=== PATIENT | female | born 1990 | race Caucasian/White ===

== ENCOUNTER 2021-12-30 00:14 | Inpatient (IN) ==
[2021-12-30] MEDS ORDERED: LACTATED RINGERS 1,000 ML IV ONE ×2 (02:40→04:05)
[2021-12-30 02:42] LABS: Bacteria,Urine Occasional /HPF (Few); Bilirubin,Urine Negative (Negative); Blood, Urine Negative (Negative); Glucose,Urine (UA) Negative (Negative); Ketones,Urine 80 mg/dL (Negative); Mucus,Urine Occasional /LPF (Occasional); Nitrite,Urine Negative (Negative); Protein,Urine 30 MG/DL; Squamous Epithelial Cell,Urine Occasional /HPF (0-10); Urine Appearance CLOUDY (Clear); Urine Color Amber (Yellow); Urine Specific Gravity 1.015 (1.001-1.035); Urine Urobilinogen < 2.0 EU/DL (<2.0)
[2021-12-30] MEDS ORDERED: CITRIC ACID/SODIUM CITRATE 30 ML UDCUP PO ONE (03:25)
[2021-12-30] MEDS ORDERED: FAMOTIDINE 20 MG/2 ML VIAL IV ONE (03:25)
[2021-12-30] MEDS ORDERED: LACTATED RINGERS 1,000 ML IV SCH (03:30)
[2021-12-30] MEDS ORDERED: miSOPROStoL 200 MCG TABLET ONE (03:43)
[2021-12-30] MEDS ORDERED: OXYTOCIN/LR 20 UNIT/1,000 ML BAG IV ONE ×2 (03:43→10:23)
[2021-12-30] MEDS ORDERED: SODIUM CHLORIDE 0.9% 0 ML IV ONE (03:43)
[2021-12-30] MEDS ORDERED: TRANEXAMIC ACID 1,000 MG/10 ML VIAL ONE (03:43)
[2021-12-30] MEDS ORDERED: CARBOPROST TROMETHAMINE 250 MCG/ML AMP IM ONE (03:44)
[2021-12-30] MEDS ORDERED: METHYLERGONOVINE 0.2 MG/1 ML AMP ONE (03:44)
[2021-12-30 03:51] LABS: Basophils % 0.2 % (0.0-0.8); Eosinophils % 0.1 % (0.00-10.9); Hematocrit 30.3 VOL% (35.7-47.0); Hemoglobin 10.4 GM/DL (12.0-16.0); Immature Granulocytes % 0.6 %; Immature Granulocytes Absolute 0.08 #; Lymphocytes # 0.7 10*3/uL (1.4-4.0); Lymphocytes % 5.1 % (21.3-54.2); Mean Corpuscular HGB Conc 34.3 GM/DL (32-36); Mean Corpuscular Volume 87.8 FL (87-102); Monocytes % 4.6 % (1.7-12.7); Neutrophils % 89.4 % (38.7-73.9); Platelet Count 186 T/CUMM (130-400); Red Blood Count 3.45 MC/CUMM (3.8-5.5); Red Cell Distribution Width 14.4 % (9.3-17.3); White Blood Count 13.6 T/CUMM (4-12)
[2021-12-30] MEDS ORDERED: BUPIVACAINE SPINAL 0.75% 2 ML AMP SPINAL ONE (03:56)
[2021-12-30] MEDS ORDERED: ceFAZolin 3,000 MG in SYRINGE 1 EACH IV ONE (04:00)
[2021-12-30] MEDS ORDERED: OXYTOCIN/LR 20 UNIT/1,000 ML BAG IV SCH (04:00)
[2021-12-30] MEDS ORDERED: ONDANSETRON 4 MG/2 ML VIAL ONE (04:01)
[2021-12-30] MEDS ORDERED: PHENYLEPHRINE 1 MG/10 ML SYRINGE IV ONE (04:25)
[2021-12-30] MEDS ORDERED: ACETAMINOPHEN INJ 1,000 MG/100 ML VIAL IV ONE (04:57)
[2021-12-30] MEDS ORDERED: KETOROLAC 30 MG/1 ML VIAL ONE (05:03)
[2021-12-30 06:03] LABS: Cord Venous Blood HCO3 19.2 MMOL/L; Cord Venous Blood PCO2 39.9 MMHG; Cord Venous Blood PO2 25.6 MMHG
[2021-12-30 06:40] LABS: Bilirubin,Urine Negative (Negative); Blood, Urine Negative (Negative); Glucose,Urine (UA) Negative (Negative); Hyaline Casts,Urine 1 /LPF (0-3); Ketones,Urine 80 mg/dL (Negative); Mucus,Urine Few /LPF (Occasional); Nitrite,Urine Negative (Negative); Protein,Urine 30 MG/DL; RBC,Urine 2 /HPF (0-4); Squamous Epithelial Cell,Urine Occasional /HPF (0-10); Urine Appearance CLOUDY (Clear); Urine Color Amber (Yellow); Urine Specific Gravity 1.017 (1.001-1.035); Urine Urobilinogen < 2.0 EU/DL (<2.0)
[2021-12-30 07:51] LABS: Hematocrit 27.4 VOL% (35.7-47.0); Hemoglobin 9.3 GM/DL (12.0-16.0)
[2021-12-30] MEDS ORDERED: MAGNESIUM HYDROXIDE SUSP 30 ML UDCUP PO PRN (10:23)
[2021-12-30] MEDS ORDERED: RHO(D) IMMUNE GLOBULIN 300 MCG SYRINGE IM ONE (10:23)
[2021-12-30] MEDS ORDERED: ONDANSETRON 4 MG/2 ML VIAL IV PRN (10:23)
[2021-12-30] MEDS: ACETAMINOPHEN 500 MG TABLET PO SCH ×3 (11:45→22:43)
[2021-12-30] MEDS: KETOROLAC 30 MG/1 ML VIAL IV SCH ×3 (11:45→22:43)
[2021-12-30 11:53] LABS: Hematocrit 24.4 VOL% (35.7-47.0); Hemoglobin 8.3 GM/DL (12.0-16.0)
[2021-12-30] MEDS: SIMETHICONE CHEW 80 MG TABLET PO PRN ×2 (12:19→21:06)
[2021-12-30] MEDS: DOCUSATE SODIUM 100 MG CAPSULE PO SCH (21:06)
[2021-12-31] MEDS: IBUPROFEN 800 MG TABLET PO PRN ×3 (05:14→22:03)
[2021-12-31 06:42] LABS: Basophils % 0.4 % (0.0-0.8); Eosinophils # 0.1 10*3/uL (0.0-0.87); Eosinophils % 1.2 % (0.00-10.9); Hematocrit 22.4 VOL% (35.7-47.0); Hemoglobin 7.4 GM/DL (12.0-16.0); Immature Granulocytes % 0.6 %; Immature Granulocytes Absolute 0.05 #; Lymphocytes # 0.9 10*3/uL (1.4-4.0); Lymphocytes % 11.3 % (21.3-54.2); Mean Corpuscular Volume 91.1 FL (87-102); Mean Platelet Volume 10.4 FL (9.6-12.0); Monocytes % 4.7 % (1.7-12.7); Neutrophils % 81.8 % (38.7-73.9); Platelet Count 155 T/CUMM (130-400); Red Blood Count 2.46 MC/CUMM (3.8-5.5); Red Cell Distribution Width 14.8 % (9.3-17.3); White Blood Count 8.3 T/CUMM (4-12)
[2021-12-31] MEDS: MULTIVITAMIN (PRENATAL) TABLET PO SCH (08:59)
[2021-12-31] MEDS: DOCUSATE SODIUM 100 MG CAPSULE PO SCH ×2 (08:59→20:45)
[2021-12-31] MEDS: IRON (CARBONYL)/VIT C/B12/FA TABLET PO SCH (08:59)
[2021-12-31 10:04] LABS: Alanine Aminotransferase 9 U/L (13-56); Albumin 2.1 G/DL (3.4-5.0); Alkaline Phosphatase 76 U/L (45-117); Aspartate Amino Transferase 20 U/L (0-37); Bilirubin,Total < 0.39 MG/DL (0.20-1.00); Blood Urea Nitrogen 6 MG/DL (7-18); Calcium 8.1 MG/DL (8.5-10.1); Carbon Dioxide 24 MMOL/L (21-32); Estimated Glom Filtration Rate 170 ML/MIN; Glucose 107 MG/DL (74-106); Osmolality,Calculated 272.7 MOS/KG (273-304); Potassium 3.9 MMOL/L (3.5-5.1); Sodium 138 MMOL/L (136-145); Total Protein 5.4 G/DL (6.4-8.2)
[2021-12-31] MEDS ORDERED: FERROUS SULFATE 325 MG TABLET PO SCH (11:00)
[2021-12-31] MEDS: SIMETHICONE CHEW 80 MG TABLET PO PRN ×2 (14:25→20:50)
[2021-12-31] MEDS ORDERED: FLUoxetine 20 MG CAPSULE PO SCH (21:00)
[2021-12-31] MEDS ORDERED: SODIUM CHLORIDE 0.9% 1,000 ML IV PRN (21:08)
[2022-01-01] MEDS: IBUPROFEN 800 MG TABLET PO PRN ×3 (06:04→22:07)
[2022-01-01] MEDS: IRON (CARBONYL)/VIT C/B12/FA TABLET PO SCH (09:50)
[2022-01-01] MEDS: MULTIVITAMIN (PRENATAL) TABLET PO SCH (09:50)
[2022-01-01] MEDS: DOCUSATE SODIUM 100 MG CAPSULE PO SCH ×2 (09:51→21:01)
[2022-01-01] MEDS ORDERED: BISACODYL 10 MG SUPP RECTAL PRN (20:53)
[2022-01-01] MEDS ORDERED: FLUoxetine 20 MG CAPSULE PO SCH (21:00)
[2022-01-02] MEDS: IBUPROFEN 800 MG TABLET PO PRN (06:42)
[2022-01-02 08:10] VITALS: BP 116/71
[2022-01-02] MEDS: IRON (CARBONYL)/VIT C/B12/FA TABLET PO SCH (08:22)
[2022-01-02] MEDS: MULTIVITAMIN (PRENATAL) TABLET PO SCH (08:22)
[2022-01-02] MEDS: DOCUSATE SODIUM 100 MG CAPSULE PO SCH (08:22)
== END 2022-01-02 13:27 | disposition home or self-care (01) | DRG 788 ==
LOC: N.LD 00:14 → N.OB 11:39
PROVIDERS: ADMIT Obstetrics & Gynecology; ATTEND Obstetrics & Gynecology
PROC: LDCSECT (ICD-10-PCS; 2021-12-30 04:00)